=== PATIENT | male | born 1985 | race Caucasian/White ===

== ENCOUNTER 2016-10-26 12:52 | Emergency (ER) | payer OTHER ==
[~2016-10-26] VITALS: Ht 182.9 cm; Wt 104.3 kg
--- NOTE | 2016-10-26 13:30 | NUR ---
Patient discharged to home in stable conditon. Written and verbal after care instructions given. Patient verbalizes understanding of instructions.
== END 2016-10-26 13:31 | disposition home or self-care (01) ==
LOC: ER 12:52
DX: H66.91 Otitis media, unspecified, right ear (principal)
CPT/HCPCS: A4663

== ENCOUNTER 2016-10-29 12:29 | Emergency (ER) | payer OTHER ==
[~2016-10-29] VITALS: Ht 182.9 cm; Wt 104.3 kg
--- NOTE | 2016-10-29 13:52 | NUR ---
Patient discharged to home in stable conditon. Written and verbal after care instructions given. Patient verbalizes understanding of instructions. Stressed follow up with pmd/ent or return to ER for worsening s/s.
== END 2016-10-29 13:54 | disposition home or self-care (01) ==
LOC: ER 12:29
DX: H66.91 Otitis media, unspecified, right ear (principal)
CPT/HCPCS: 99283; A4663